=== PATIENT | female | born 1955 | race Caucasian/White ===

== ENCOUNTER 2018-12-04 06:35 | Day surgery (SDC) | payer OTHER ==
[~2018-12-04 06:35] MED LIST: ALTOPREV40 MG PO; ASA81 MG PO; PROLIA60 MG/1 ML SUBCUTANEO; SYNTHROID100 MCG PO
== END 2018-12-04 14:05 | disposition home or self-care (01) ==
LOC: CIR.AMB 06:35
DX: N60.22 Fibroadenosis of left breast (principal)